=== PATIENT | female | born 1945 | race Caucasian/White ===

== ENCOUNTER 2016-08-04 13:00 | Inpatient (IN) | payer MEDICARE, BC ==
[~2016-08-04] VITALS: Ht 152.4 cm; Wt 80.4 kg
--- NOTE | ~2016-08-04 | OR ---
PATIENT'S NAME: KARLA BRIGHT [facility] AGE: 71 Y [address] ROOM: [place] [address] LOCATION: [facility] ADMIT DATE: 08/11/2016 OR/Procedure Report DISCHARGE DATE: FAMILY PHYSICIAN: Jessika Cadena MD ATTENDING PHYSICIAN: RADHA ALLEN SURGEON: Radha Allen MD PUBLIC AFFAIRS MANAGER: 1. MARY ANN Spencer. 2. Rico Knight [employer]. DATE OF PROCEDURE: 08/11/2016 PRE-OP DIAGNOSIS: Degenerative joint disease, right knee. POST-OP DIAGNOSIS: Degenerative joint disease, right knee. OPERATION: Right total knee arthroplasty with computer navigation. ANESTHESIA: Spinal anesthesia plus adductor canal block plus periarticular local anesthesia (ropivacaine with epinephrine and Toradol). ESTIMATED BLOOD LOSS: Less than 10 mL. DRAIN: None. SPECIMEN: None. COMPLICATIONS: None. IMPLANT SYSTEM: Emanuel Triathlon. Size 3 right posterior stabilized femoral component. Size 2 universal modular tibial base plate. 13 mm posterior stabilized size 2 X3 tibial polyethylene insert. 29 mm Oval X3 patella component (triple pegged). INDICATIONS FOR SURGERY: Karla Bright is a 71-year-old female who presents with advanced right knee degenerative joint disease and associated severely compromised activities of daily living. The patient has decided to proceed with knee replacement after having been thoroughly counseled regarding the associated risks, benefits, and limitations. We have specifically reviewed the risks and implications of infection, deep venous thrombosis, pulmonary embolism, mortality, neurovascular complications, blood transfusion (and associated potential for disease transmission or transfusion reaction), stiffness, instability, mechanical deterioration of the components (due to wear and or loosening), and the potential need for revision. We have also emphasized the importance of active involvement and compliance with post- PATIENT'S NAME: KARLA BRIGHT [facility] AGE: 71 Y [address] ROOM: [place] [address] LOCATION: [facility] ADMIT DATE: 08/11/2016 OR/Procedure Report DISCHARGE DATE: FAMILY PHYSICIAN: Jessika Cadena MD ATTENDING PHYSICIAN: RADHA ALLEN operative physical therapy as a means of optimizing range of motion and functional recovery. Informed consent has been granted. DESCRIPTION OF PROCEDURE: The patient was positioned supine after administration of anesthesia and prophylactic antibiotics. A well-padded pneumatic tourniquet was placed around the right proximal thigh, and the right lower extremity was prepped and draped with vigilant sterile technique. The patient's name as well as the intended operative side and procedure were confirmed with a verbal time-out involving myself, the circulating nurse, the scrub nurse, and the anesthesiologist. Examination under anesthesia demonstrated no active skin lesions or masses. There was a large effusion. There was no erythema. There was no abnormal warmth. Range of motion was under anesthesia was from full extension to 120 degrees of flexion. There was no ligamentous insufficiency. The right lower extremity was elevated and exsanguinated with an Esmarch wrap, and the pneumatic tourniquet was inflated to 300 mmHg. The knee was approached through a longitudinal midline incision. A medial parapatellar arthrotomy was performed and the patella was everted. Examination of the joint space demonstrated a large amount of benign-appearing translucent synovial fluid. There was generalized moderate nonproliferative synovitis. There was a large popliteal cyst, which I decompressed into the joint by dilating its point of communication through the posteromedial joint capsule. The cruciate ligaments were intact. There were grade 2 degenerative changes at the patella and the medial aspect of the lateral femoral condyle. There were mild grade 3 degenerative changes at the medial aspect of the lateral tibial plateau. There was a small osteophyte at the lateral tibial plateau. There was a large osteophyte at the medial femoral condyle and a moderate- sized osteophyte at the anterior aspect of the medial tibial plateau. There was full-thickness loss of articular cartilage involving 95% of the medial femoral condyle and the anteromedial 70% of the medial tibial plateau. There was complex degenerative tearing throughout the posterior two-thirds of the medial meniscus. There was a small inner perimeter radial tear at the posterior aspect of the lateral meniscus. The patient was noted to be moderately severely osteopenic. Remnants of the menisci and cruciate ligaments were excised. The Source[employer]Style navigation femoral tracker was pinned in place at the distal aspect of the femoral trochlea. Absence of motion between the femur and the tracking device was confirmed manually and visually. Femoral osseous landmarks were obtained in order to calibrate the computer navigation system. Landmarks included the center of rotation of the ipsilateral hip, the center-point of the distal femur, the femoral AP axis, 57 points on the medial femoral condyle PATIENT'S NAME: KARLA BRIGHT [facility] AGE: 71 Y [address] ROOM: [id number] [place], [place] [address] LOCATION: [facility] ADMIT DATE: 08/11/2016 OR/Procedure Report DISCHARGE DATE: FAMILY PHYSICIAN: Jessika Cadena MD ATTENDING PHYSICIAN: RADHA ALLEN articular surface, and 57 points on the lateral femoral condyle articular surface. The [employer] computer navigation system was subsequently utilized to position the distal femoral resection block such that the distal femoral resection was performed perfectly perpendicular to the femoral mechanical axis. The distal femoral resection was performed with a [employer] 3Doodler oscillating saw. The [employer] computer navigation tibial tracker was pinned in place at the anterior aspect of the tibial plateau. Absence of motion between the tibia and the tracking device was confirmed manually and visually. Tibial osseous landmarks were obtained in order to calibrate the computer navigation system. Landmarks included the center-point of the tibial plateau, the AP tibial axis, 57 points on the medial tibial plateau articular surface, 57 points on the lateral tibial plateau articular surface, the medial malleolus, and the lateral malleolus. The [employer] computer navigation system was subsequently utilized to position the proximal tibial resection block such that the proximal tibial resection was performed perfectly perpendicular to the tibial mechanical axis. The proximal tibial resection was performed with a [employer] Precision oscillating saw. Perpendicularity of the tibial resection with respect to the tibial shaft axis was reconfirmed by inserting a spacer- block attached to an extramedullary guide helen. External rotation of the anterior and posterior femoral resections was set parallel to the epicondylar axis and carefully adjusted in order to create a rectangular flexion gap. The box resection was performed with a reciprocating saw. Anterior and posterior chamfer resections were performed with the oscillating saw. Posterior condyle osteophytes were excised with an osteotome. All other osteophytes were excised with a rongeur. Resection of all remnants of the menisci was reconfirmed. Flexion and extension gaps were confirmed to be symmetric and well balanced with a spacer-block technique. The patella resection was performed with an oscillating saw such that the composite thickness of the reconstructed patella was equivalent to the thickness of the [place] patella. Patella tracking was confirmed to be optimal, and there was no need for a lateral retinacular release. All trial components were removed and all prepared osseous surfaces were thoroughly irrigated with pulsatile saline lavage and dried prior to cementing all three components in a single stage using Emanuel Simplex cement containing pre-mixed tobramycin. All extruded excess cement was removed. The entire joint space was thoroughly inspected and thoroughly irrigated with bacteriostatic pulsatile saline lavage to assure that there was no residual debris of any sort. Final range of motion was from full extension (with no passive hyperextension) PATIENT'S NAME: KARLA BRIGHT [facility] AGE: 71 Y [address] ROOM: [place] [address] LOCATION: [facility] ADMIT DATE: 08/11/2016 OR/Procedure Report DISCHARGE DATE: FAMILY PHYSICIAN: Jessika Cadena MD ATTENDING PHYSICIAN: RADHA ALLEN to 130 degrees of flexion. Patella tracking was reconfirmed to be optimal. There was excellent anteroposterior stability at 90 degrees of flexion. There was 0 mm of medial lift-off to valgus stress in full extension. There was 1.5 mm of lateral lift-off to varus stress in full extension. The arthrotomy was closed with multiple simple and [id number] interrupted #1 Vicryl. Subcutaneous tissues were thoroughly re-irrigated with bacteriostatic pulsatile saline lavage. Subcutaneous tissues were re- approximated with simple buried interrupted #0 Vicryl sutures. The skin was closed with simple buried interrupted 2-0 Vicryl sutures followed by surgical rashel. The dressing consisted of Xeroform gauze, 4x4 gauze, ABD pads and two 6-inch Juan Wraps. There were no intra-operative complications. It should be noted that the physician's mobile unit assistant played an active, integral role throughout this entire operation. By providing expert retraction, they greatly facilitated and expedited safe and effective exposure of the distal femur, proximal tibia and patella for preparation and implantation of the components. They were also actively involved in the patient's positioning, prepping and draping, as well as wound closure. MD JOHN BURLESON/kaylee /[id number] d: 08/11/16 2156 t: 08/19/16 0752, OPERATIVE SUMMARY
--- NOTE | ~2016-08-04 | DS ---
PATIENT'S NAME: KARLA BRIGHT [facility] AGE: 71 Y [address] ROOM: [place] [address] LOCATION: [facility] ADMIT DATE: 08/11/2016 Discharge Summary DISCHARGE DATE: 08/13/2016 FAMILY PHYSICIAN: Jessika Cadena MD ATTENDING PHYSICIAN: Radha Allen PRIMARY DIAGNOSIS: Degenerative joint disease of the right knee. SECONDARY DIAGNOSES: 1. History of coronary artery disease. 2. Hypertension. 3. Obesity. 4. Hypercholesterolemia. 5. Exertional shortness of breath. PROCEDURE PERFORMED: Right total knee arthroplasty with computer navigation. HISTORY: The patient is a 71-year-old female, who presents with advanced right knee degenerative joint disease and associated severely compromised activities of daily living. The patient has decided to proceed with total knee arthroplasty after having been thoroughly counseled regarding the risks, benefits, limitations and alternatives. Please refer to the outpatient clinic notes and admission history and physical for this patient. HOSPITAL COURSE: The patient underwent a right total knee arthroplasty on 08/11/2016 without complications. Spinal anesthesia plus adductor canal block plus periarticular local anesthesia was utilized. The patient received 24 hours of perioperative prophylactic antibiotics and remained hemodynamically stable, neurovascularly intact throughout the entire hospital course. The postoperative prophylactic deep venous thrombosis prophylaxis consisted of Xarelto 10 mg, early mobilization and pneumatic compression devices. Daily physical therapy for gait training, transfer training range of motion and quadriceps isometric exercises were received. The patient progressed well in physical therapy. On the date of discharge, 08/13/2016, the incision at the knee was healing well and showed no signs of infection. DISPOSITION: Home. DISCHARGE ACTIVITY: The patient is to bear weight as tolerated with range of motion and quadriceps isometric exercises as instructed. The operative extremity is to be elevated at least 90% of the day. There is to be sterile 4x4 gauze dressings to the incision daily. Dr. Allen is to be notified immediately if there is any increased pain, fevers, chills erythema or drainage. PATIENT'S NAME: KARLA BRIGHT [facility] AGE: 71 Y [address] ROOM: [place] [address] LOCATION: [facility] ADMIT DATE: 08/11/2016 Discharge Summary DISCHARGE DATE: 08/13/2016 FAMILY PHYSICIAN: Jessika Cadena MD ATTENDING PHYSICIAN: Radha Allen DISCHARGE MEDICATIONS: 1. Xarelto 10 mg, take 1 tablet p.o. daily for DVT prevention. 2. Dilaudid 2 mg, take 1 to 2 tablets p.o. every 4 hours as needed for pain. 3. Celebrex 200 mg, take 1 tablet p.o. daily x7 days. FOLLOWUP: Followup appointment is to be with Dr. Allen, date is scheduled from 1 week subsequent to dismissal from the hospital for initial postoperative evaluation and x-rays at that time. MARY ANN HAMILTON FOR RADHA ALLEN MD TLB/modl /[id number] d: 08/26/16402 t: 08/26/16 0932, DISCHARGE SUMMARY
[~2016-08-04 13:00] MED LIST: ADVIL200 MG PO; ALDACTONE25 MG PO; ASPIRIN LO-DOSE81 MG PO; BACTRIM DS1 TAB PO; COREG12.5 MG PO; HYZAAR 100-12.1 EACH PO; JUICE PLUS PO; LIPITOR80 MG PO; NITROSTAT0.4 MG SL; NORVASC5 MG PO; PRILOSEC20 MG PO; STOOL SOFTENER100 MG PO; TYLENOL EXTRA500 MG PO
[2016-08-04] MEDS ORDERED: PRESERVISION A1 EACH PO (13:53)
[2016-08-04] MEDS ORDERED: JUICE PLUS VEGETABLE PO (13:55)
[2016-08-04] MEDS ORDERED: OXYCODONE-ACET1 EAC1 PO (13:56)
[2016-08-04] MEDS ORDERED: FEOSOL325 MG PO (13:59)
--- NOTE | 2016-08-11 17:57 | NUR ---
Significant Event:Received from PACU at 1645. 2nd 1/2 hour at 1830. Spinal sensation at knee. Dressing dry and intact. No void. O2 at 2L Follow up:
--- NOTE | 2016-08-12 03:54 | NUR ---
Significant Event: Alert and oriented X3. Vital signs stable. Weaned to RA. Dressing to R) knee is CDI. Elevated. Ice. CSM WNL. Up to bedside commode with 1-2 assist, gait belt and walker. Minimal pain, taking scheduled tylenol and dilaudid. LR @ 80 ml/hr to R) hand. Follow up: Next ATB at 1200.
[2016-08-12 05:36] LABS: HEMATOCRIT 33.4 % (33.0-46.0); HEMOGLOBIN 10.9 g/dL (10.0-15.0)
--- NOTE | 2016-08-12 15:30 | NUR ---
1200 Introduced self and CM role to patient, her , and son. Patient and were debating about going to swingbed in [facility] a few miles away from their home in [place], [place]. Patient was requesting to get more information on how swingbed is paid for and if it would be a good option for her. Patient identified she has a walker, but may need to get more DME to assist her when she is back in her home. Son suggested that he will contact the DME store locations here in town and find the best porter for equipment, and discuss it with pt. I provided the list of local DME locations to pt's son. I told pt and family that I would ask CM Chiquis about swingbed option and insurance coverage for this; and that I would return with Chiquis later this afternoon. 1515 CM Chiquis and I returned to pt's room to inform her on coverage information for swingbed. Chiquis discussed with pt and pt's about their insurance. Pt's primary insurance is Blue Cross Blue Shield with Medicare A as secondary. Asked pt if she is still working to explain why Blue [employer] Blue Shield was her primary, in which she stated she wasn't and discussion came to the conclusion that Medicare A should become her primary in admissions. Pt and pt's will decide if they will be returning home upon discharge or swingbed. It seemed that pt and came to the conclusion after discussion that home would be the best option. 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 Will touch base with them in the morning to see for sure what their plan is. Plan to discharge tomorrow morning 08/13 if going home or 08/14 if going to swingbed. Will go tell admissions to change Medicare A as her primary insurance. CM Ball Assembler .
--- NOTE | 2016-08-12 16:47 | NUR ---
Significant Event:Dilaudid 2mg x4 last at 1638. Torodol 15mg at 1639. Dressing dry and intact . CSM WNL. Up to BR/chair one assist with walker. at bedside. Planning home tomorrow Follow up:
--- NOTE | 2016-08-13 02:58 | NUR ---
Significant Event: Alert and oriented X3. Vital signs stable. Dressing to R) knee is CDI. CSM WNL. Ambulates to bathroom with 1 assist, gait belt and walker. Had large BM this am. IV sl'd. Scheduled tylenol and dilaudid given for pain. Plans to discharge home today. Follow up:
--- NOTE | 2016-08-13 11:03 | NUR ---
945 Followed up with patient and about discharge plan, plan is to return home instead of swingbed. Pt and were in good spirits and decided they feel safe discharging to their home in [place], [place]. Asked about DME and said pt's son and him picked up a shower chair and encapsulator yesterday; and that they already have a walker at home. No other needs, questions, or concerns. Plan to discharge home this afternoon.
[2016-08-13] MEDS ORDERED: MIRALAX17 GM PO (13:37)
[2016-08-13] MEDS ORDERED: XARELTO10 MG PO (13:38)
[2016-08-13] MEDS ORDERED: DILAUDID 2MG(HYD2 MG PO (13:40)
[2016-08-13] MEDS ORDERED: CELEBREX200 MG PO (13:42)
--- NOTE | 2016-08-13 15:05 | NUR ---
D: PATIENT ALERT AND ORIENTED X3. R) KNEE DRESSING CHANGED THIS AM, AFTER SHOWER, STERILE GAUZE DRESSING APPLIED WITH TUBIGRIP, INCISION APPROXIMATED, JUNIOR INTACT. CSM ASSESSMENTS WNL TO R) LOWER LEG. PAIN WELL CONTROLLED WITH DILAUDID PO GIVEN LAST AT 1420 AND ROUTINE TYLENOL EXTRA STRENGTH AT 1345. AMBULATES TO BATHROOM AND UP TO CHAIR WITH SBA, USE OF WALKER AND GAIT BELT. EZ WRAP TO R) KNEE. BILATERAL KNEE HIGH CELIEN HOSE AND FOOT PUMPS ON. DISCHARGE INSTRUCTIONS REVIEWED WITH PATIENT AND , VERBALIZES UNDERSTANDING. PATIENT DISMISSED TO HOME, ACCOMPANIED BY , ASSISTED TO VEHICLE VIA W/C AND TRANSPORT ASSISTANCE.
== END 2016-08-13 15:06 | disposition disaster alternative care site (69) | DRG 470 ==
LOC: G3N 08-11 08:37
PROVIDERS: ADMIT Orthopaedic Surgery
PROC: 0SRC0J9 Replacement of Right Knee Joint with Synthetic Substitute, Cemented, Open Approach (ICD-10-PCS; principal; 2016-08-11)
PROC: 8E0YXBZ Computer Assisted Procedure of Lower Extremity (ICD-10-PCS; principal; 2016-08-11)
DX: M17.11 Unilateral primary osteoarthritis, right knee (principal); I10 Essential (primary) hypertension; M71.21 Synovial cyst of popliteal space [Baker], right knee; M51.36 Other intervertebral disc degeneration, lumbar region; D50.9 Iron deficiency anemia, unspecified; K59.09 Other constipation; I25.10 Atherosclerotic heart disease of native coronary artery without angina pectoris; E78.5 Hyperlipidemia, unspecified; E78.00 Pure hypercholesterolemia, unspecified; R06.02 Shortness of breath; E66.9 Obesity, unspecified; Z68.35 Body mass index [BMI] 35.0-35.9, adult; Z79.891 Long term (current) use of opiate analgesic; Z79.899 Other long term (current) drug therapy
CPT/HCPCS: C1713; C1776; J0690; J1100; J1885; J2001; J7120